=== PATIENT | female | born 1960 | race American Indian/Alaskan Native ===

== ENCOUNTER 2016-08-24 12:04 | Inpatient (IN) | payer SELFPAY ==
[2016-08-24 14:25] LABS: Anion Gap 16 mmol/L; Blood Urea Nitrogen 14 mg/dL (7-17); Carbon Dioxide 25 mmol/L (22-30); Glucose 107 mg/dL (65-100)
[2016-08-24 14:47] LABS: Basophils % (Auto) 0.3 % (0.0-1.8); Eosinophils % (Auto) 0.5 % (0.0-4.3); Hematocrit 39.6 % (30.3-42.9); Hemoglobin 12.9 gm/dl (10.1-14.3); Mean Corpuscular HGB Conc 33 % (30-34); Mean Corpuscular Hemoglobin 29 pg (28-32); Mean Corpuscular Volume 87 fl (79-97); Platelet Count 175 K/mm3 (140-440); Red Blood Count 4.54 M/mm3 (3.65-5.03); Red Cell Distribution Width 13.4 % (13.2-15.2); White Blood Count 11.6 K/mm3 (4.5-11.0)
[2016-08-24 16:53] LABS: Chloride 104.3 mmol/L (98-107); Potassium 3.8 mmol/L (3.6-5.0); Sodium 141 mmol/L (137-145)
[2016-08-24] MEDS ORDERED: ZOFRAN IV ONE (20:44)
[2016-08-24] MEDS ORDERED: MORPHINE IV ONE (20:44)
[2016-08-24] MEDS ORDERED: NITRO-BID 2% TP ONE (20:44)
[2016-08-24] MEDS ORDERED: ASPIRIN PO ONE (20:45)
--- NOTE | 2016-08-24 20:54 | Emergency Department Report ---
HPI - General Chief Complaint: Chest Pain Time Seen by Provider: 08/24/16 20:38 - HPI HPI: Room 5 The patient is a 56-year-old female presenting with a chief complaint of chest pain. The patient states yesterday substernal chest pain score of is pulling tightness associated with diaphoresis. She states the pain resolved but today it returned again with diaphoresis. Patient missed shortness of breath but denies nausea or vomiting. Patient states she still has chest tightness and gives a score of 6-7/10. Patient states she's never had a stress test or cardiac catheterization Location: Chest Duration: Intermittent since yesterday Quality: Pulling tightness Severity: 6-7/10 Modifying factors: [see above] Context: [see above] Mode of transportation: [not driving] ED Past Medical Hx - Past Medical History Previous Medical History?: Yes Additional medical history: Anemia. HIGH CHOLESTEROL - Surgical History Past Surgical History?: Yes Hx Appendectomy: Yes Additional Surgical History: ectopic - Family History Family history: no significant - Social History Smoking Status: Former Smoker (none times approximately 40 years) Substance Use Type: Alcohol (occasional) - Medications Home Medications: Home Medications Medication Instructions Recorded Confirmed Last Taken Type No Known Home Medications [No 08/24/16 08/24/16 Unknown History Reported Home Medications] ED Review of Systems ROS: Stated complaint: CHEST PAIN/LIGHT HEADED Other details as noted in HPI Comment: All other systems reviewed and negative Constitutional: diaphoresis Eyes: denies: eye pain, eye discharge, vision change ENT: denies: ear pain, throat pain Respiratory: shortness of breath Cardiovascular: chest pain Endocrine: no symptoms reported Gastrointestinal: denies: nausea, vomiting Genitourinary: denies: urgency, dysuria, discharge Musculoskeletal: denies: back pain, joint swelling, arthralgia Skin: denies: rash, lesions Neurological: denies: headache, weakness, paresthesias Psychiatric: denies: anxiety, depression Hematological/Lymphatic: denies: easy bleeding, easy bruising Physical Exam - Physical Exam Vital Signs: Vital Signs 08/24/16 08/24/16 12:25 20:48 Temperature 98.1 F Pulse Rate 70 62 Respiratory 18 Rate Blood Pressure 145/87 Blood Pressure 145/87 [Right] O2 Sat by Pulse 98 Oximetry Physical Exam: GENERAL: The patient is well-developed well-nourished female lying on stretcher talking on cell phone not appearing to be in acute distress. [] HEENT: Normocephalic. Atraumatic. Extraocular motions are intact. Patient has moist mucous membranes. NECK: Supple. Trachea midline CHEST/LUNGS: Clear to auscultation. There is no respiratory distress noted. HEART/CARDIOVASCULAR: Regular. There is no tachycardia. There is no gallop rub or murmur. ABDOMEN: Abdomen is soft, nontender. Patient has normal bowel sounds. There is no abdominal distention. SKIN: There is no rash. There is no edema. There is no diaphoresis. NEURO: The patient is awake, alert, and oriented. The patient is cooperative. The patient has normal speech MUSCULOSKELETAL: There is no evidence of acute injury. ED Course Vital Signs 08/24/16 08/24/16 12:25 20:48 Temperature 98.1 F Pulse Rate 70 62 Respiratory 18 Rate Blood Pressure 145/87 Blood Pressure 145/87 [Right] O2 Sat by Pulse 98 Oximetry ED Medical Decision Making - Lab Data Result diagrams: 08/24/16 13:12 08/24/16 13:12 Laboratory Tests 08/24/16 08/24/16 08/24/16 13:12 13:12 15:22 WBC 11.6 H RBC 4.54 Hgb 12.9 Hct 39.6 MCV 87 MCH 29 MCHC 33 RDW 13.4 Plt Count 175 Lymph % (Auto) 33.9 [place] % (Auto) 6.3 Eos % (Auto) 0.5 Baso % (Auto) 0.3 Lymph # 3.9 [place] # 0.7 Eos # 0.1 Baso # 0.0 Seg Neutrophils % 59.0 Seg Neutrophils # 6.8 Sodium 141 Potassium 3.8 Chloride 104.3 Carbon Dioxide 25 Anion Gap 16 BUN 14 Creatinine 0.5 L Estimated GFR > 60 BUN/Creatinine Ratio 28.00 Glucose 107 H Calcium 9.0 Troponin T < 0.010 < 0.010 08/24/16 18:11 WBC RBC Hgb Hct MCV MCH MCHC RDW Plt Count Lymph % (Auto) [place] % (Auto) Eos % (Auto) Baso % (Auto) Lymph # [place] # Eos # Baso # Seg Neutrophils % Seg Neutrophils # Sodium Potassium Chloride Carbon Dioxide Anion Gap BUN Creatinine Estimated GFR BUN/Creatinine Ratio Glucose Calcium Troponin T < 0.010 - EKG Data -: EKG Interpreted by Me EKG shows normal: sinus rhythm Rate: normal - EKG Data When compared to previous EKG there are: no significant change Interpretation: unchanged when compared t (11/10/2015) - Radiology Data Radiology results: image reviewed (chest x-ray) interpreted by me: Chest x-ray- no definite focal infiltrates, no pneumothorax - Differential Diagnosis ACS, GERD, pericarditis Critical care attestation.: If time is entered above; I have spent that time in minutes in the direct care of this critically ill patient, excluding procedure time. ED Disposition Clinical Impression: Chest pain Disposition: OP ADMITTED IP TO THIS HOSP Is pt being admited?: Yes Does the pt Need Aspirin: Yes Condition: Fair Instructions: Chest Pain (ED) Referrals: PRIMARY CARE, [Primary Care Provider] - 3-5 Days Time of Disposition: 20:57 (awaiting hospitalist 21:00)
[2016-08-24] MEDS ORDERED: PERCOCET 5/325 PO PRN (22:39)
[2016-08-24] MEDS ORDERED: MILK OF MAGNESIA PO PRN (22:39)
[2016-08-24] MEDS ORDERED: SODIUM CHLORIDE FLUSH SYRINGE 10 ML IV PRN (22:39)
[2016-08-24] MEDS ORDERED: DULCOLAX PR PRN (22:39)
--- NOTE | 2016-08-24 22:43 | History and Physical Report ---
History of Present Illness Date of examination: 08/24/16 History of present illness: 56-year-old woman is here hyperlipidemia comes emergency room with complaints of chest pain located in the epigastric area which started yesterday. She describes as a tightness, intermittent in nature lasting for 5-10 minutes, intensity is 7/10, no radiation and she cannot identify exacerbating or relieving factors. Admits to diaphoresis, no nausea vomiting palpitation, shortness of breath. Patient denies cough, abdominal pain, hematochezia, dysuria, frequency, focal weakness, dysarthria, fever chills, polydipsia polyuria, hot or cold intolerance , easy bruisability, or rash or bleeding from mucosal membrane, rhinorrhea, epistaxis, earache, tinnitus, blurry vision, eye discharge, anxiety, depression. Other review of systems negative PAST SURGICAL HISTORY: Hysterectomy SOCIAL HISTORY: Denies alcohol, tobacco, drugs FAMILY HISTORY: Hypertension Medications and Allergies Allergies Allergy/AdvReac Type Severity Reaction Status Date / Time No Known Allergies Allergy Verified 02/20/16 14:02 Home Medications Medication Instructions Recorded Confirmed Last Taken Type No Known Home Medications [No 08/24/16 08/24/16 Unknown History Reported Home Medications] Exam - Physical Exam Narrative exam: Gen. appearance: Patient lying in bed, no apparent distress HEENT: Normocephalic, atraumatic, pupils equally round and reactive to light, extraocular movement intact, and no sclericterus,. No JVD or thyromegaly or nodule,neck supple, no carotid bruit ,mucous membranes moist, no exudate or erythema Heart: S1, S2, regular rate and rhythm Lungs: Clear to auscultation bilaterally, breathing comfortable Abdomen: Positive bowel sounds, nontender, nondistended, no organomegaly Extremity: No edema, cyanosis, clubbing Skin: No rash, nodules, warm, dry Neuro: Oriented 3, cranial nerves II-12 intact, speech is fluent, motor and sensory intact - Constitutional Vitals: Temp Pulse Resp BP Pulse Ox 98.1 F 67 12 152/80 100 08/24/16 12:25 08/24/16 21:31 08/24/16 21:31 08/24/16 21:31 08/24/16 21:31 Results - Labs CBC & Chem 7: 08/24/16 13:12 08/24/16 13:12 Labs: Abnormal lab results 08/24/16 08/24/16 Range/Units 13:12 13:12 WBC 11.6 H (4.5-11.0) K/mm3 Creatinine 0.5 L (0.7-1.2) mg/dL Glucose 107 H (65-100) mg/dL - Imaging and Cardiology EKG: image reviewed Chest x-ray: image reviewed Assessment and Plan Chest pain, rule out ACS Hyperlipidemia Admits medicine Check cardiac enzymes, lipid profile and obtain a stress test Start aspirin, pain medication and DVT prophylaxis
[2016-08-24] MEDS: ZOFRAN IV PRN (23:05)
--- NOTE | 2016-08-25 03:12 | Admit Criteria Form ---
Admission Criteria Documentation: CARDIOLOGY GRG Clinical Indications for Admission to Inpatient Care ( Place 'X' for any and all applicable criteria): Hospital admission is needed for appropriate care of the patient because of ANY ONE of the following (1): [ ] I. Hemodynamic instability as indicated by ALL of the following (1)(2)(3) (4)(5) [ ]a) Vital signs or other findings not as expected for chronic patient condition or baseline [ ]b) Instability indicated by ANY ONE of the following: [ ]i) Hypotension [ ]ii) Symptomatic Tachycardia unresponsive to treatment ( e.g., analgesia, fluids, sedation as indicated) [ ]iii) Inadequate perfusion indicated by ANY ONE of the following: [ ] 1) Lactic acidosis (> 2 mmol/L) [ ] 2) New abnormal capillary refill (> 3 seconds) [ ] 3) Reduced urine output [ ] 4) New altered mental status [ ]iv) Orthostatic vital sign changes unresponsive to treatment (e.g., fluids) [ ]v) IV inotropic or vasopressor medication required to maintain adequate blood pressure or perfusion [ ] II. Severe heart failure as indicated by ANY ONE of the following(17)(18) [ ]a) Respiratory distress [ ]b) Hypotension [ ]c) Anasarca (refractory to outpatient therapy) [ ]d) Cardiac arrhythmias of immediate concern [ ]e) Myocardial ischemia [ ] III. Cardiac arrhythmias or findings of immediate concern indicated by ANY ONE of the following (19)(20): [ ] a) Heart rhythms that are inherently dangerous or unstable indicated by ANY ONE of the following (21)(22)(23): [ ] i) Resuscitated ventricular fibrillation or cardiac arrest [ ] ii) Ventricular escape rhythm [ ] iii) Sustained ventricular tachycardia (30 seconds or more of ventricular rhythm at greater than 100 beats per minute) [ ] iv) Nonsustained ventricular tachycardia and ANY ONE of the following: [ ] 1) Suspected cardiac ischemia as cause or consequence of ventricular tachycardia [ ] 2) In setting of acute myocarditis [ ] b) Unstable cardiac conduction defects indicated by ANY ONE of the following(23)(24)(25) [ ] i) Type II second-degree atrioventricular block [ ]ii) Third-degree atrioventricular block [ ]iii) New-onset left bundle branch block with suspected myocardial ischemia [ ]c) Any heart rhythm and ANY ONE of the following (21)(22)(26)(27) (28) [ ] i) Continuous long-term ECG monitoring needed (e.g., initiation of drug requiring monitoring for more than 24 hours) [ ] ii) Patient has automatic implanted cardioverter defibrillator that is repeatedly firing, malfunctioning, or in need of immediate adjustment of settings beyond the scope of ambulatory or observation care [ ]d) Heart rhythms of concern due to ANY ONE of the following: [ ] i) Hypotension [ ] ii) Respiratory distress [ ] iii) Association with other significant symptoms (e.g., bradycardia with syncope or ongoing dizziness, supraventricular tachycardia with chest pain (14)(15)(17) [ ] IV. Monitoring for cardiac contusion beyond the scope of observation care needed [A](30)(31)(32) [ ] V. Surgical or device complication (e.g., valve replacement complication , pacemaker dysfunction) (35)(41)(44)(45)(46) [ ] . Inpatient palliative care needed. [B](49) Also use Inpatient Palliative Care Criteria [ ] VII. Nonbacterial thrombotic (marantic) endocarditis (36)(43)(47)(48) [ X] VIII. Cardiology condition, symptom, or finding for which emergency and observation care has failed or are not considered appropriate. [ ] IX. Acute valvular disease requiring inpatient as indicated by ANY ONE of the following (41) [ ]a) Acute valvular regurgitation (42) [ ]b) Noninfectious valvulitis (43) [ ]c) Obstructive valve thrombosis [ ]d) Paravalvular leak [ ]e) Other significant valvular disorder remaining after emergency or observation level of care (as appropriate) [ ]X. Pericardial disease requiring inpatient treatment as indicated by ANY ONE of the following (33)(34)(35)(36)(37) [ ]a) Suspected tamponade (38)(39)(40) [ ]b) Hemopericardium [ ]c) Other significant pericardial disorder remaining after emergency or observation level of care (as appropriate) [ ] XI. Cardiac ischemia beyond scope of emergency and observation care. [ ] XII. Hypertension requiring inpatient treatment as indicated by ANY ONE of the following (6)(7)(8) [ ]a) SBP greater than 220 mm Hg or DBP greater than 120 mmHg despite treatment [ ]b) SBP greater than 140 mm Hg or DBP greater than 100 mm Hg with evidence of acute end organ damage as indicated by ANY ONE of the following [ ] i) Altered mental status [ ] ii) Acute renal failure as indicated by new onset of ANY ONE of the following (9)(10)(11)(12)(13) [ ]1) 3-fold rise in serum creatinine from baseline [ ]2) Serum creatinine greater than 4 mg/dL ( 354 micromoles/L) with acute rise greater than 0.5 mg/dL (44.2 micromoles/L) [ ]3) Reduction of more than 75% in estimated glomerular filtration rate from baseline [ ]4) Estimated glomerular filtration rate less than 35 mL/min/1.73m2 (0.59 mL/sec/1.73m2) in child up to 18 years of age [ ]5) Cessation of urine output indicated by ALL of the following [ ]A. Adequate volume status [ ]B. Inadequate urine output as indicated by ANY ONE of the following [ ]a. Urine output less than 0.3 mL/kg/hr for 24 hours [ ]b. Anuria (urine output less than 0.1 mL/kg/hr) for 12 hours [ ] iii) Aortic dissection [ ] iv) Myocardial Ischemia [ ] v) Left ventricular heart failure [ ]vi) Retinal Hemorrhage [ ]vii) Other significant finding [ ]c) Hypertension in child requiring inpatient treatment as indicated by ALL of the following(14)(15)(16) [ ] i) Outpatient treatment not effective, not available, or not appropriate [ ]ii) SBP or DBP greater than 95th percentile for age [ ]iii) Evidence of acute end organ damage as indicated by ANY ONE of the following [ ]1) Altered mental status [ ]2) Acute renal failure as indicated by new onset of ANY ONE of the following(9)(10)(11)(12)(13) [ ]A. 3-fold rise in serum creatinine from baseline [ ]B. Serum creatinine greater than 4 mg/dL (354 micromoles/L) with acute rise greater than 0.5 mg/dL (44.2 micromoles/L) [ ]C. Reduction of more than 75% in estimated glomerular filtration rate from baseline [ ]D. Estimated glomerular filtration rate less than 35 mL/min/1.73m2 (0.59 mL/sec/1.73m2) in child up to 18 years of age [ ]E. Cessation of urine output indicated by ALL of the following [ ]a. Adequate volume status [ ]b. Inadequate urine output as indicated by ANY ONE of the following [ ]i) Urine output less than 0.3 mL/kg/hr for 24 hours [ ]ii) Anuria ( urine output less than 0.1 mL/kg/hr) for 12 hours [ ]3) Severe headache [ ]4) Visual disturbance [ ]5) Retinal hemorrhage [ ]6) Other significant finding [ ]XIII. Complications of transplanted heart indicated by ANY ONE of the following(61): [ ]a) Acute graft rejection requiring inpatient management (eg, intravenous immunosuppression)(62)(63) [ ]b) Acute graft heart failure indicated by ANY ONE of the following(64): [ ]i) Hemodynamic instability [ ]ii) Cardiac arrhythmias of immediate concern [ ]iii) Pulmonary edema that is very severe (eg, mechanical ventilation needed, imminent or likely, need for 100% oxygen to keep oxygen saturation above 90%) [ ]iv) Pulmonary edema that is persistent as indicated by ALL of the following: [ ]1) New need for oxygen therapy to keep oxygen saturation above 90% (or increased FiO2 need from baseline) [ ]2) Has not improved sufficiently with emergency department or observation care IV diuretics or other heart failure treatments[E] [ ]v) Altered mental status that is severe or persistent [ ]vi) Increased creatinine (new on laboratory test) with reduction of more than 50% in estimated glomerular filtration rate from baseline [ ]vii) Progressively (ongoing) rising creatinine (known from past laboratory test) with reduction of more than 25% in estimated glomerular filtration rate from baseline [ ]viii) Acute renal failure [ ]ix) Acute peripheral ischemia (eg, examination shows pulseless, cool, mottled, or cyanotic extremity) [ ]x) Pulmonary artery catheter monitoring needed [ ]xi) Other sign or symptom of heart failure requiring inpatient treatment (ie, too severe or not responsive to outpatient and observation care treatment) [ ]c) Infection requiring inpatient management (eg, Hemodynamic instability, need for intravenous antimicrobial treatment)(66)(67)(68)(69)(70) [ ]d) Cardiac allograft vasculopathy requiring inpatient management ( eg evidence of cardiac ischemia)(71) [ ]e) Other complication of transplanted heart (eg, stroke, severe pulmonary hypertension, severe valvular dysfunction) requiring inpatient management(72) The original [facility] [employer] content created by [facility] has been revised. The portions of the content which have been revised are identified through the use of italic text or in bold, and [facility] has neither reviewed nor approved the modified material. All other unmodified content is copyright [facility] [employer]. Please see references footnoted in the original [facility] [employer] edition 2016 Admission Criteria Met: Yes
[2016-08-25] MEDS: TYLENOL PO PRN (06:34)
[2016-08-25] MEDS: ZOFRAN IV PRN (06:34)
[2016-08-25 09:08] LABS: Basophils % (Auto) 0.5 % (0.0-1.8); Eosinophils % (Auto) 0.2 % (0.0-4.3); Hematocrit 40.7 % (30.3-42.9); Hemoglobin 13.4 gm/dl (10.1-14.3); Mean Corpuscular HGB Conc 33 % (30-34); Mean Corpuscular Hemoglobin 29 pg (28-32); Mean Corpuscular Volume 87 fl (79-97); Platelet Count 183 K/mm3 (140-440); Red Cell Distribution Width 13.2 % (13.2-15.2); White Blood Count 12.6 K/mm3 (4.5-11.0)
--- NOTE | 2016-08-25 09:22 | XRay Report ---
AP CHEST : 08/24/16 12:04:00 CLINICAL: Chest pain. COMPARISON:11/11/15 FINDINGS: Borderline cardiomegaly and mild prominence of the upper lobe pulmonary vessels. The lungs are normally expanded and clear. The bones and soft tissues are unremarkable. IMPRESSION: Borderline cardiomegaly and pulmonary venous hypertension. No pulmonary edema.
[2016-08-25 09:31] LABS: Anion Gap 17 mmol/L; Blood Urea Nitrogen 13 mg/dL (7-17); Calcium 9.4 mg/dL (8.4-10.2); Carbon Dioxide 27 mmol/L (22-30); Chloride 99.3 mmol/L (98-107); Glucose 108 mg/dL (65-100); Potassium 3.8 mmol/L (3.6-5.0); Sodium 139 mmol/L (137-145)
[2016-08-25 09:32] LABS: Creatine Kinase MB 3.6 ng/mL (0.0-4.0)
--- NOTE | 2016-08-25 11:05 | Progress Note ---
Assessment and Plan Assessment and plan: --Chest pain/coronary artery disease Serial cardiac enzymes, aspirin and beta blockers MERY inhibitor's nitrates and statins Stress test to rule out reversible ischemia Supportive care --Hypertension Continue current antihypertensives and when necessary medications --Dyslipidemia Stable on lipid-lowering medications --DVT prophylaxis with Lovenox This closely monitor the patient and adjust management as needed Follow stress test, if negative and patient is stable Can be discharged home tomorrow Plan of care discussed with the patient, family members at the bedside, as well as the nurse History Interval history: Sincerely and evaluated in her room this morning medical records reviewed No new events reported by the nursing staff Admitted with chest pain When for stress test, nuclear part of which stress test to be completed tomorrow Alert awake oriented 3 not in acute distress Vital signs reviewed stable Hospitalist Physical - Constitutional Vitals: Temp Pulse Resp BP Pulse Ox 98.7 F 52 L 16 147/75 100 08/25/16 10:16 08/25/16 09:17 08/25/16 10:16 08/25/16 10:16 08/25/16 10:16 General appearance: Present: no acute distress, well-nourished - EENT Eyes: Present: PERRL, EOM intact - Neck Neck: Present: supple, normal ROM - Respiratory Respiratory effort: normal Respiratory: bilateral: diminished, negative: rales, rhonchi, wheezing - Cardiovascular Rhythm: regular Heart Sounds: Present: S1 & S2 - Extremities Extremities: no ischemia, pulses intact, pulses symmetrical Peripheral Pulses: within normal limits - Abdominal General gastrointestinal: soft, non-tender, non-distended - Integumentary Integumentary: Present: clear, warm - Psychiatric Psychiatric: appropriate mood/affect, cooperative - Neurologic Neurologic: CNII-XII intact, moves all extremities Results - Labs CBC & Chem 7: 08/25/16 08:27 08/25/16 08:27 Labs: Laboratory Last Values WBC 12.6 K/mm3 (4.5-11.0) H 08/25/16 08:27 RBC 4.70 M/mm3 (3.65-5.03) 08/25/16 08:27 Hgb 13.4 gm/dl (10.1-14.3) 08/25/16 08:27 Hct 40.7 % (30.3-42.9) 08/25/16 08:27 MCV 87 fl (79-97) 08/25/16 08:27 MCH 29 pg (28-32) 08/25/16 08: MCHC 33 % (30-34) 08/25/16 08: RDW 13.2 % (13.2-15.2) 08/25/16 08:27 Plt Count 183 K/mm3 (140-440) 08/25/16 08:27 Lymph % (Auto) 21.2 % (13.4-35.0) 08/25/16 08:27 [place] % (Auto) 4.9 % (0.0-7.3) 08/25/16 08: Eos % (Auto) 0.2 % (0.0-4.3) 08/25/16 08: Baso % (Auto) 0.5 % (0.0-1.8) 08/25/16 08: Lymph # 2.7 K/mm3 (1.2-5.4) 08/25/16 08: [place] # 0.6 K/mm3 (0.0-0.8) 08/25/16 08: Eos # 0.0 K/mm3 (0.0-0.4) 08/25/16 08: Baso # 0.1 K/mm3 (0.0-0.1) 08/25/16 08:27 Seg Neutrophils % 73.2 % (40.0-70.0) H 08/25/16 08: Seg Neutrophils # 9.3 K/mm3 (1.8-7.7) H 08/25/16 08:27 Sodium 139 mmol/L (137-145) 08/25/16 08:27 Potassium 3.8 mmol/L (3.6-5.0) 08/25/16 08: Chloride 99.3 mmol/L (98-107) 08/25/16 08: Carbon Dioxide 27 mmol/L (22-30) 08/25/16 08:27 Anion Gap 17 mmol/L 08/25/16 08:27 BUN 13 mg/dL (7-17) 08/25/16 08:27 Creatinine 0.5 mg/dL (0.7-1.2) L 08/25/16 08:27 Estimated GFR > 60 ml/min 08/25/16: BUN/Creatinine Ratio 26.00 % 08/25/16 08: Glucose 108 mg/dL (65-100) H 08/25/16 08: Calcium 9.4 mg/dL (8.4-10.2) 08/25/16 08: Total Creatine Kinase 239 units/L (30-135) H 08/25/16 08: CK-MB (CK-2) 3.6 ng/mL (0.0-4.0) 08/25/16: CK-MB (CK-2) Rel Index 1.5 (0-4) 08/25/16: Troponin T < 0.010 ng/mL (0.00-0.029) 08/25/16: Triglycerides 127 mg/dL (2-149) 08/25/16 08: Cholesterol 249 mg/dL (50-199) H 08/25/16 08: LDL Cholesterol Direct 165 mg/dL (50-130) H 08/25/16: HDL Cholesterol 59 mg/dL (40-59) 08/25/16 08: Cholesterol/HDL Ratio 4.22 % 08/25/16:
[2016-08-25] MEDS ORDERED: FLUARIX QUAD 2016-2017(36 MOS+) IM ONE (12:00)
[2016-08-25] MEDS: BABY ASPIRIN PO SCH (17:57)
[2016-08-25] MEDS: LOVENOX SUB-Q SCH (17:59)
--- NOTE | 2016-08-25 22:44 | Treadmill Report ---
TREADMILL EXERCISE STRESS TEST REFERRING PHYSICIAN: Irene Mg MD PROTOCOL: The patient was brought to the stress lab in a post-absorptive state excised on a standard Kuldeep protocol treadmill. Resting blood pressure is 120/80, resting heart rate is 58. The patient exercised on a standard Kuldeep protocol for 7 minutes and 15 seconds to achieve 8.4 ____ due to fatigue. No chest pain or arrhythmia noted during stress or recovery. Peak heart rate of 142, peak blood pressure of 170/80. There is [address] segment depression inferolaterally. This is an equivocal finding. CONCLUSIONS: Equivocal exercise stress test with 1-[address] segment depression inferolaterally without evidence of chest pain or arrhythmia during stress or recovery. Average exercise tolerance. Appropriate heart rate/blood pressure response and recovery. Given equivocal stress test findings, would consider stress test with nuclear perfusion imaging to improve sensitivity and specificity of the test. JOB# [id number] SBM/NAA
[2016-08-26] MEDS: TYLENOL PO PRN (07:01)
[2016-08-26 08:35] LABS: Basophils % (Auto) 0.2 % (0.0-1.8); Eosinophils % (Auto) 0.5 % (0.0-4.3); Hematocrit 40.3 % (30.3-42.9); Hemoglobin 13.6 gm/dl (10.1-14.3); Mean Corpuscular HGB Conc 34 % (30-34); Mean Corpuscular Hemoglobin 29 pg (28-32); Mean Corpuscular Volume 86 fl (79-97); Platelet Count 185 K/mm3 (140-440); Red Blood Count 4.71 M/mm3 (3.65-5.03); Red Cell Distribution Width 13.1 % (13.2-15.2); White Blood Count 10.3 K/mm3 (4.5-11.0)
[2016-08-26 08:53] LABS: Anion Gap 18 mmol/L; BUN/Creatinine Ratio 23.33; Blood Urea Nitrogen 14 mg/dL (7-17); Calcium 8.9 mg/dL (8.4-10.2); Carbon Dioxide 24 mmol/L (22-30); Chloride 101.9 mmol/L (98-107); Glucose 99 mg/dL (65-100); Potassium 3.6 mmol/L (3.6-5.0); Sodium 140 mmol/L (137-145)
--- NOTE | 2016-08-26 10:09 | Progress Note ---
Hospitalist Physical - Constitutional Vitals: Temp Pulse Resp BP Pulse Ox 97.9 F 68 12 131/77 99 08/26/16 09:59 08/26/16 03:55 08/26/16 09:59 08/26/16 09:59 08/26/16 09:59 General appearance: Present: no acute distress, well-nourished Results - Labs CBC & Chem 7: 08/26/16 07:44 08/26/16 07:44 Labs: Laboratory Last Values WBC 10.3 K/mm3 (4.5-11.0) 08/26/16 07:44 RBC 4.71 M/mm3 (3.65-5.03) 08/26/16 07:44 Hgb 13.6 gm/dl (10.1-14.3) 08/26/16 07:44 Hct 40.3 % (30.3-42.9) 08/26/16 07:44 MCV 86 fl (79-97) 08/26/16 07:44 MCH 29 pg (28-32) 08/26/16 07:44 MCHC 34 % (30-34) 08/26/16 07:44 RDW 13.1 % (13.2-15.2) L 08/26/16 07:44 Plt Count 185 K/mm3 (140-440) 08/26/16 07:44 Lymph % (Auto) 41.7 % (13.4-35.0) H 08/26/16 07:44 Nance % (Auto) 7.5 % (0.0-7.3) H 08/26/16 07:44 Eos % (Auto) 0.5 % (0.0-4.3) 08/26/16 07:44 Baso % (Auto) 0.2 % (0.0-1.8) 08/26/16 07:44 Lymph # 4.3 K/mm3 (1.2-5.4) 08/26/16 07:44 Nance # 0.8 K/mm3 (0.0-0.8) 08/26/16 07:44 Eos # 0.0 K/mm3 (0.0-0.4) 08/26/16 07:44 Baso # 0.0 K/mm3 (0.0-0.1) 08/26/16 07:44 Seg Neutrophils % 50.1 % (40.0-70.0) 08/26/16 07:44 Seg Neutrophils # 5.2 K/mm3 (1.8-7.7) 08/26/16 07:44 Sodium 140 mmol/L (137-145) 08/26/16 07:44 Potassium 3.6 mmol/L (3.6-5.0) 08/26/16 07:44 Chloride 101.9 mmol/L (98-107) 08/26/16 07:44 Carbon Dioxide 24 mmol/L (22-30) 08/26/16 07:44 Anion Gap 18 mmol/L 08/26/16 07:44 BUN 14 mg/dL (7-17) 08/26/16 07:44 Creatinine 0.6 mg/dL (0.7-1.2) L 08/26/16 07:44 Estimated GFR > 60 ml/min 08/26/16 07:44 BUN/Creatinine Ratio 23.33 % 08/26/16 07:44 Glucose 99 mg/dL (65-100) 08/26/16 07:44 Calcium 8.9 mg/dL (8.4-10.2) 08/26/16 07:44 Total Creatine Kinase 239 units/L (30-135) H 08/25/16 08:27 CK-MB (CK-2) 3.6 ng/mL (0.0-4.0) 08/25/16 08:27 CK-MB (CK-2) Rel Index 1.5 (0-4) 08/25/16 08:27 Troponin T < 0.010 ng/mL (0.00-0.029) 08/25/16 08:27 Triglycerides 127 mg/dL (2-149) 08/25/16 08:27 Cholesterol 249 mg/dL (50-199) H 08/25/16 08:27 LDL Cholesterol Direct 165 mg/dL (50-130) H 08/25/16 08:27 HDL Cholesterol 59 mg/dL (40-59) 08/25/16 08:27 Cholesterol/HDL Ratio 4.22 % 08/25/16 08:27
[2016-08-26] MEDS: LOVENOX SUB-Q SCH (12:15)
[2016-08-26] MEDS: BABY ASPIRIN PO SCH (12:16)
--- NOTE | 2016-08-26 12:37 | Discharge Summary ---
Providers - Providers Date of Admission: 08/24/16 22:39 Date of discharge: 08/26/16 Attending physician: NANO ROMAN Primary care physician: [employer]IE[employer]EN OFFICER Hospitalization Reason for admission: left sided chest pain Condition: Fair Pertinent studies: Chest x-ray; borderline cardiomegaly and pulmonary venous hypertension Stress test; negative for reversible ischemia, normal left ventricle function Hospital course: 56-year-old female patient with significant past medical history of dyslipidemia was admitted through emergency room with atypical chest pain patient was initially evaluated admitted to the hospital symptomatically managed subsequently underwent stress test which was negative for reversible ischemia and a normal left-ventricular function patient's symptoms significantly improved today she is comfortable in bed alert awake oriented 3 not in acute distress vital signs are stable [id number] evaluation and physical examination done by me prior to discharge is unremarkable as detailed below Patient advised low salt low cholesterol diet Follow with primary care physician in one week Should she have recurrent chest pain patient may need extensive outpatient cardiac evaluation advised 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 as outpatient or "emergency room Final diagnosis; Atypical chest pain resolved Negative stress test Noncardiac chest pain probably secondary to GERD Dyslipidemia Disposition: DISCHARGED TO HOME OR SELFCARE Time spent for discharge: 31 min Core Measure Documentation - Palliative Care Palliative Care/ Comfort Measures: Not Applicable - Core Measures Any of the following diagnoses?: none Exam - Constitutional Vitals: Temp Pulse Resp BP Pulse Ox 97.9 F 64 12 131/77 99 08/26/16 09:59 08/26/16 10:11 08/26/16 09:59 08/26/16 09:59 08/26/16 09:59 General appearance: Present: no acute distress, well-nourished - EENT Eyes: Present: PERRL, EOM intact - Neck Neck: Present: supple, normal ROM - Respiratory Respiratory effort: normal Respiratory: negative: rales, rhonchi, wheezing - Cardiovascular Rhythm: regular Heart Sounds: Present: S1 & S2 - Extremities Extremities: no ischemia, pulses intact, pulses symmetrical Peripheral Pulses: within normal limits - Abdominal General gastrointestinal: Present: soft, non-tender, non-distended, normal bowel sounds - Integumentary Integumentary: Present: clear, warm - Musculoskeletal Musculoskeletal: strength equal bilaterally - Psychiatric Psychiatric: appropriate mood/affect, cooperative - Neurologic Neurologic: CNII-XII intact, moves all extremities Plan Activity: no restrictions Diet: low cholesterol, low salt Additional Instructions: If you have chest pain or shortness of breath contact MD or go to emergency room. advised one day rest on 08/27/16 Follow up with: PRIMARY CARE,MD [Primary Care Provider] - 3-5 Days Prescriptions: AtorvaSTATin [Lipitor] 40 mg PO QHS #30 tablet Famotidine/Ca Carb/Mag Hydrox [Pepcid Complete Tablet Chew] 1 each PO BID #20 tab.chew
[2016-08-26 13:33] VITALS: BP 97/67
--- NOTE | 2016-08-27 01:58 | Treadmill Report ---
NUCLEAR PERFUSION SCAN STRESS THALLIUM PROTOCOL: The patient was brought to the stress lab in a post-absorptive state, given 10 mCi of technetium 99m at rest. The patient underwent rest imaging: The patient underwent a treadmill stress test. At peak stress, the patient was given 26 mCi of technetium 99m. Shortly thereafter, the patient underwent stress imaging. INTERPRETATION: No significant GI artifact or motion artifact. SPECT imaging examined carefully in the horizontal long axis, vertical long axis, and short axis views. There is normal homogenous uptake of radioisotope in all reported segments. No evidence of a significant fixed or reversible perfusion defects suggestive of prior infarction or ischemia. Gated wall motion reveals normal systolic thickening, calculated ejection fraction of 74%. No TID. CONCLUSIONS: 1. Normal myocardial perfusion scan without evidence of active ischemia or prior infarction. 2. Normal left ventricular systolic performance without evidence of transient ischemic dilatation or stress-induced segmental wall motion abnormalities. JOB# [id number] CORINNA/NAA
--- NOTE | 2016-08-27 02:19 | Treadmill Report ---
EXERCISE TREADMILL STRESS TEST. REFERRING PHYSICIAN: Araceli Amezcua M.D. INDICATION FOR PROCEDURE: The patient is scheduled to have a nuclear stress thallium today as she had an equivocal exercise treadmill yesterday. PROCEDURE IN DETAIL: The patient brought to the stress lab in a postabsorptive state, given 10 mCi of technetium 99m at rest. The patient underwent rest imaging. The patient underwent exercise treadmill stress test per standard Kuldeep protocol. At peak stress, the patient was given 26 mCi of technetium 99m. Shortly thereafter, the patient underwent stress imaging. Baseline EKG reveals normal sinus rhythm, normal axis, normal intervals. Resting blood pressure is 140/82, peak blood pressure is 170/80. Peak heart rate is 158. Target heart rate is 138. The patient exercised for a total of 8 minutes on a standard Kuldeep protocol to achieve 9.8 mets. Test was stopped due to fatigue. There is [address] segment depression inferolaterally. This is an equivocal finding. No chest pain or arrhythmia during stress or recovery. CONCLUSIONS: 1. Equivocal exercise stress test with [address] segment depression inferolaterally without evidence of chest pain or arrhythmia. 2. Average exercise tolerance. Appropriate heart rate/blood pressure response in recovery. 3. Nuclear images to follow. JOB# [id number] SBM/NTS
== END 2016-08-26 14:10 | disposition home or self-care (01) | DRG 392 ==
LOC: ED 12:04 → 4A 22:39
PROVIDERS: ADMIT Internal Medicine; ATTEND Internal Medicine
DX: K21.9 Gastro-esophageal reflux disease without esophagitis (principal); E78.5 Hyperlipidemia, unspecified; Z82.49 Family history of ischemic heart disease and other diseases of the circulatory system; Z90.710 Acquired absence of both cervix and uterus; Z87.891 Personal history of nicotine dependence
CPT/HCPCS: 36415; 71010; 78452; 80048; 80061; 82550; 82553; 84484; 85025; 90686; 93005; 93010; 93017; 96374; 96375; A9270-GY; A9502; J1650; J2270; J2405